=== PATIENT | female | born 1995 | race African-American/Black ===

== ENCOUNTER 2017-12-29 22:38 | Emergency (ER) | payer SELFPAY ==
[~2017-12-29] VITALS: Ht 165.1 cm; Wt 72.0 kg
[2017-12-29] MEDS ORDERED: KETOROLAC 60MG/2ML VIAL IM STA (23:55)
[2017-12-30] MEDS ORDERED: LIDOCAINE HCL 1% 20ML VIAL (Pyxis) INJ MC ONE
[2017-12-30] MEDS ORDERED: BACITRACIN ZINC OINT UDPKT TOP ONE
[2017-12-30] MEDS ORDERED: HYDROCODONE/APAP 7.5/325MG 1 TAB TABLET PO ONE (00:15)
[2017-12-30] MEDS ORDERED: BACITRACIN ZINC OINT UDPKT TOP SCH (05:00)
[2017-12-30 05:45] VITALS: BP 139/80
== END 2017-12-30 05:45 | disposition home or self-care (01) ==
LOC: ER 22:38
DX: S61.511A Laceration without foreign body of right wrist, initial encounter (principal); W22.03XA Walked into furniture, initial encounter; Y93.89 Activity, other specified; Y92.89 Other specified places as the place of occurrence of the external cause; Y99.8 Other external cause status
CPT/HCPCS: 12032; 73110; 81025; 99284; J3490; Z7610; 12002

== ENCOUNTER 2019-04-27 21:57 | Emergency (ER) | payer SELFPAY ==
[~2019-04-27] VITALS: Ht 160 cm; Wt 73.5 kg
[2019-04-28] MEDS ORDERED: KETOROLAC 30MG/ML VIAL IM ONE (01:30)
[2019-04-28] MEDS ORDERED: BACITRACIN ZINC OINT UDPKT TOP ONE (02:00)
[2019-04-28 02:40] VITALS: BP 122/68
== END 2019-04-28 02:41 | disposition home or self-care (01) ==
LOC: ER 21:57
DX: S61.307A Unspecified open wound of left little finger with damage to nail, initial encounter (principal); L03.012 Cellulitis of left finger; R03.0 Elevated blood-pressure reading, without diagnosis of hypertension; W22.8XXA Striking against or struck by other objects, initial encounter; Y93.89 Activity, other specified; Y92.89 Other specified places as the place of occurrence of the external cause; F12.90 Cannabis use, unspecified, uncomplicated
CPT/HCPCS: 73140; 96372; 99283; J1885